=== PATIENT | male | born 1985 | race Caucasian/White ===

== ENCOUNTER 2019-11-03 18:15 | Emergency (ER) | payer SELFPAY ==
[2019-11-03] MEDS ORDERED: FENTANYL CITR 100 MCG/2 ML ONE (19:25)
[2019-11-03] MEDS ORDERED: NA CHLORIDE 0.9% 1,000 ML ONE (19:25)
[2019-11-03 20:01] LABS: Protime INR 0.98
[2019-11-03 20:02] LABS: Absolute Lymphocytes (CBC) 2.3 K/uL (0.7-4.9); Basophils % 0.6 % (0-1.3); Hematocrit 49.3 % (39.6-49.0); Lymphocytes % 30.3 % (15.3-44.8); MPV 9.8 fL (7.6-11.3); RBC Red Blood Cell Count 5.56 M/uL (4.33-5.43)
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
[2019-11-03 20:19] LABS: Potassium 3.8 mmol/L (3.5-5.1)
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
[2019-11-03 21:00] VITALS: TEMP 98.4
[2019-11-03 21:02] VITALS: BP 130/85; O2SAT 98
== END 2019-11-03 20:49 | disposition home or self-care (01) ==
LOC: ER 18:15
DX: S16.1XXA Strain of muscle, fascia and tendon at neck level, initial encounter (principal); S29.012A Strain of muscle and tendon of back wall of thorax, initial encounter; V59.50XA Passenger in pick-up truck or van injured in collision with unspecified motor vehicles in traffic accident, initial encounter
CPT/HCPCS: 36415; 70450; 71260; 72125; 74177; 80048; 82565; 85025; 85610; 86850; 86900; 86901; 96361; 96374; 99284; J3010; J7030; Q9967